=== PATIENT | male | born 1990 | race Caucasian/White ===

== ENCOUNTER → 2019-09-30 18:13 | Outpatient (CLI) | payer OTHER, SELFPAY ==
[2019-09-30 19:00] LABS: Influenza A - CEPHEID Flu A NEGATIVE (NEGATIVE); Influenza B - CEPHEID Flu B NEGATIVE (NEGATIVE)
== END ==
PROVIDERS: Visit Provider Physician Assistant
DX: R68.89 Other general symptoms and signs (principal); B34.9 Viral infection, unspecified; R59.1 Generalized enlarged lymph nodes
CPT/HCPCS: 87070; 87502